=== PATIENT | female | born 1935 | race American Indian/Alaskan Native ===

== ENCOUNTER 2017-08-13 16:06 | Emergency (ER) | payer OTHER, MEDICARE ==
[2017-08-13] MEDS ORDERED: TORADOL IV ONE (16:31)
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
[2017-08-13 16:33] VITALS: BP 187/87
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
--- NOTE | 2017-08-13 18:30 | XRay Report ---
FINAL REPORT PROCEDURE: XR KNEE 3V RT TECHNIQUE: Right knee, three views HISTORY: knee pain COMPARISON: No prior studies are available for comparison. FINDINGS: No acute fracture or joint dislocation is seen. There are osteoarthritic changes. There is a medial posterior intra-articular body, measuring 9 millimeters. IMPRESSION: No acute osseous abnormality
== END 2017-08-13 20:00 | disposition home or self-care (01) ==
LOC: ED 16:06
DX: G89.11 Acute pain due to trauma (principal); M54.2 Cervicalgia; Z88.5 Allergy status to narcotic agent; Z88.8 Allergy status to other drugs, medicaments and biological substances; V87.7XXA Person injured in collision between other specified motor vehicles (traffic), initial encounter; Y93.89 Activity, other specified; Y99.8 Other external cause status; Y92.410 Unspecified street and highway as the place of occurrence of the external cause
CPT/HCPCS: 70450; 71045; 72125; 73562; 96374; 99284; J1885